=== PATIENT | male | born 2000 | race Caucasian/White ===

== ENCOUNTER 2018-05-01 13:58 | Emergency (ER) | payer MEDICAID ==
[~2018-05-01] VITALS: Ht 180.3 cm; Wt 59.8 kg
[~2018-05-01 13:58] MED LIST: HALO2TAB IM; HALO2TAB PO; LAMO100T2 PO; LORA2TAB96 PO; LORA2VIA30 IM
[2018-05-01 14:08] VITALS: BP 141/85
[2018-05-01] MEDS ORDERED: PENI-88 PO (14:22)
[2018-05-01] MEDS ORDERED: ACET-3067 PO (14:22)
[2018-05-01] MEDS ORDERED: acetaminophen w/codeine (30MG) #3 tablet PO ONE (14:25)
== END 2018-05-01 14:33 | disposition home or self-care (01) ==
LOC: ER 13:58
DX: K02.9 Dental caries, unspecified (principal); F12.10 Cannabis abuse, uncomplicated; F17.200 Nicotine dependence, unspecified, uncomplicated; F41.9 Anxiety disorder, unspecified; F32.9 Major depressive disorder, single episode, unspecified
CPT/HCPCS: 99283

== ENCOUNTER 2018-07-07 14:56 | Emergency (ER) | payer MEDICAID ==
[~2018-07-07] VITALS: Ht 180.3 cm; Wt 61.4 kg
[2018-07-07 15:12] VITALS: BP 121/82
== END 2018-07-07 15:52 | disposition home or self-care (01) ==
LOC: ER 14:56
DX: K08.89 Other specified disorders of teeth and supporting structures (principal); R22.0 Localized swelling, mass and lump, head; F12.90 Cannabis use, unspecified, uncomplicated; Z98.818 Other dental procedure status
CPT/HCPCS: 99281

== ENCOUNTER 2018-12-08 23:32 | Emergency (ER) | payer MEDICAID ==
[~2018-12-08] VITALS: Ht 182.9 cm; Wt 63.6 kg
[2018-12-08 23:37] VITALS: BP 129/90
--- NOTE | 2018-12-08 23:52 | NUR ---
EFFIE STINSON ASKED IF SHE COULD ORDER AN ANKLE FILM/STATED THAT WOULD BE FINE.
[2018-12-09] MEDS ORDERED: ketorolac trometh. 30mg/ml inj. IM ONE (04:05)
== END 2018-12-09 04:19 | disposition home or self-care (01) ==
LOC: ER 23:33
DX: S93.601A Unspecified sprain of right foot, initial encounter (principal); F12.90 Cannabis use, unspecified, uncomplicated; Z79.899 Other long term (current) drug therapy; X58.XXXA Exposure to other specified factors, initial encounter; Y93.89 Activity, other specified; Y92.89 Other specified places as the place of occurrence of the external cause; Y99.8 Other external cause status
CPT/HCPCS: 29515; 73610; 73630; 96372; 99283; J1885

== ENCOUNTER 2019-04-24 12:28 | Emergency (ER) | payer MEDICAID ==
[~2019-04-24] VITALS: Ht 182.9 cm; Wt 63.6 kg
[2019-04-24 12:37] VITALS: BP 124/70
[2019-04-24] MEDS ORDERED: AMOX500C2 PO (13:08)
[2019-04-24] MEDS ORDERED: acetaminophen 325mg tablet PO ONE (13:10)
[2019-04-24] MEDS ORDERED: ketorolac trometh inj. 60 MG/2 ML VIAL IM ONE (13:10)
[2019-04-24] MEDS ORDERED: ketorolac trometh. 30mg/ml inj. IM ONE (13:10)
== END 2019-04-24 13:43 | disposition home or self-care (01) ==
LOC: ER 12:28
DX: K02.9 Dental caries, unspecified (principal); F41.9 Anxiety disorder, unspecified; F32.9 Major depressive disorder, single episode, unspecified; F12.90 Cannabis use, unspecified, uncomplicated; Z98.890 Other specified postprocedural states
CPT/HCPCS: 96372; 99283; J1885

== ENCOUNTER 2019-05-17 19:14 | Emergency (ER) | payer MEDICAID, OTHER ==
[~2019-05-17] VITALS: Ht 182.9 cm; Wt 63.6 kg
[~2019-05-17 19:14] MED LIST changes: +AMOX500C2 PO
[2019-05-17 19:19] VITALS: BP 110/59
--- NOTE | 2019-05-17 20:45 | NUR ---
Rounding on patient, pt left without telling anyone. Will wait to see if he returns.
--- NOTE | 2019-05-17 21:00 | NUR ---
Pt has not returned to room.
== END 2019-05-17 21:20 | disposition left against medical advice (07) ==
LOC: ER 19:15
DX: K08.89 Other specified disorders of teeth and supporting structures (principal); Z53.21 Procedure and treatment not carried out due to patient leaving prior to being seen by health care provider

== ENCOUNTER 2023-11-27 17:58 | Inpatient (IN) | payer MEDICAID ==
[~2023-11-27] VITALS: Ht 180.3 cm; Wt 52.7 kg
[~2023-11-27 17:58] MED LIST changes: -AMOX500C2 PO
[2023-11-27 21:24] VITALS: BP 133/82; PULSE 67; RESP 16; TEMP 99.7; O2SAT 99
[2023-11-27] MEDS ORDERED: acetaminophen 325mg tablet PO PRN (21:40)
[2023-11-27] MEDS ORDERED: magnesium hydroxide 30ml (MOM) UD suspension PO PRN (21:40)
[2023-11-27] MEDS ORDERED: loperamide 2mg capsule PO PRN (21:40)
[2023-11-27 22:40] VITALS: RESP 16; O2SAT 99
[2023-11-27] MEDS: NICOTINE POLACRILEX 2 MG LOZENGE BC PRN (22:51)
[2023-11-27] MEDS: folic acid 1mg tablet PO ONE (23:15)
[2023-11-27] MEDS: thiamine 100mg tablet PO ONE (23:16)
[2023-11-27] MEDS ORDERED: NO HOME MEDS (23:34)
[2023-11-28] MEDS: acetaminophen 325mg tablet PO PRN (07:00)
[2023-11-28] MEDS: thiamine 100mg tablet PO SCH (07:00)
[2023-11-28] MEDS: folic acid 1mg tablet PO SCH (07:01)
[2023-11-28] MEDS: nicotine 21mg patch - 24 hr TD SCH (07:01)
[2023-11-28 07:27] VITALS: RESP 16; O2SAT 99
[2023-11-28 08:00] VITALS: BP 112/78; PULSE 72; RESP 14; TEMP 97.8; O2SAT 100
[2023-11-28] MEDS: lactose-reduced food (Ensure Enlive) - 237ml bottle PO SCH (13:00)
[2023-11-28 13:43] LABS: BASOPHILS % (AUTO) 0.3 % (0-1); EOSINOPHILS % (AUTO) 0.4 % (0-6); HEMATOCRIT 44.8 % (42.0-52.0); LYMPHOCYTES # (AUTO) 0.7 X10'3 (1.1-4.8); LYMPHOCYTES % (AUTO) 14.3 % (21-51); MEAN CORPUSCULAR HEMOGLOBIN 34.1 PG (27.0-31.0); MEAN CORPUSCULAR HGB CONC 33.4 g/dL (33.0-36.5); MEAN PLATELET VOLUME 8.4 FL (7.4-10.4); MONOCYTES # (AUTO) 0.5 X10'3 (0-0.9); MONOCYTES % (AUTO) 9.3 % (2-12); NEUTROPHILS # (AUTO) 3.9 X10'3 (1.8-7.7); NEUTROPHILS % (AUTO) 75.7 % (42-75); PLATELET COUNT 177 X10'3 (140-440); RED CELL DISTRIBUTION WIDTH 13.6 % (11.5-14.5); WHITE BLOOD COUNT 5.1 X10'3 (4.5-11.0)
[2023-11-28 13:48] LABS: ALANINE AMINOTRANSFERASE 665 U/L (12-78); ALBUMIN 3.9 G/DL (3.4-5.0); ALBUMIN/GLOBULIN RATIO 1.1 (1.1-1.5); ALKALINE PHOSPHATASE 127 IU/L (46-116); ANION GAP 12 (8-16); ASPARTATE AMINO TRANSFERASE 699 U/L (10-37); BILIRUBIN,TOTAL 1.3 MG/DL (0.1-1.0); BLOOD UREA NITROGEN 9 MG/DL (7-18); BUN/CREATININE RATIO 14.1 (10.0-20.0); CALCIUM 9.6 MG/DL (8.5-10.1); CHLORIDE 97 MMOL/L (99-107); CREATININE 0.64 MG/DL (0.60-1.10); GLUCOSE 152 MG/DL (70-104); HEMOGLOBIN A1C 4.8 % (4.5-6.2); SODIUM 134 MMOL/L (135-145); TOTAL CARBON DIOXIDE 25.3 MMOL/L (24-32); TOTAL PROTEIN 7.6 G/DL (6.4-8.2); eCRCL 132 ML/MIN; eGFR > 90 ML/MIN
[2023-11-28 13:50] LABS: CHOL/HDL RATIO 1.6 (0.00-4.99); CHOLESTEROL 198 MG/DL (0-200); HDL CHOLESTEROL 125 MG/DL (35-60); LDL CHOLESTEROL 50 MG/DL (50-100); TRIGLYCERIDES 67 MG/DL (20-135)
[2023-11-28 19:00] VITALS: RESP 18; O2SAT 99
[2023-11-28 20:00] VITALS: BP 152/88; PULSE 80; RESP 18; TEMP 99.1; O2SAT 99
[2023-11-28] MEDS: docusate sod 100mg capsule PO SCH (20:06)
[2023-11-28] MEDS ORDERED: LORazepam 1 MG tablet PO PRN (20:40)
[2023-11-28 21:00] VITALS: BP 128/84; PULSE 77; RESP 16; TEMP 99.1; O2SAT 98
[2023-11-28] MEDS: traZODone 50mg tablet PO SCH (21:44)
[2023-11-29 06:55] VITALS: RESP 16; O2SAT 99
[2023-11-29] MEDS: ESCITALOPRAM 10 mg tablet 10 MG TABLET PO SCH (07:10)
[2023-11-29 08:44] VITALS: BP 125/66; PULSE 51; RESP 14; TEMP 98.1; O2SAT 99
[2023-11-29] MEDS: mag hydrox/Alum hydrox/simeth 30ml oral suspension PO PRN (09:28)
[2023-11-29 19:19] VITALS: RESP 18; O2SAT 98
[2023-11-29 19:43] VITALS: BP 128/77; PULSE 91; RESP 18; TEMP 98.5; O2SAT 98
[2023-11-29] MEDS: traZODone 50mg tablet PO ONE (20:45)
[2023-11-29] MEDS: traZODone 50mg tablet PO SCH (20:45)
[2023-11-30 07:00] VITALS: RESP 14; O2SAT 99
[2023-11-30 07:25] LABS: ALANINE AMINOTRANSFERASE 959 U/L (12-78); ALBUMIN 3.6 G/DL (3.4-5.0); ALBUMIN/GLOBULIN RATIO 1.1 (1.1-1.5); ALKALINE PHOSPHATASE 109 IU/L (46-116); ANION GAP 6 (8-16); ASPARTATE AMINO TRANSFERASE 925 U/L (10-37); BILIRUBIN,TOTAL 1.2 MG/DL (0.1-1.0); BLOOD UREA NITROGEN 11 MG/DL (7-18); BUN/CREATININE RATIO 13.6 (10.0-20.0); CALCIUM 8.9 MG/DL (8.5-10.1); CHLORIDE 103 MMOL/L (99-107); CREATININE 0.81 MG/DL (0.60-1.10); GLUCOSE 91 MG/DL (70-104); POTASSIUM 4.7 MMOL/L (3.5-5.1); SODIUM 138 MMOL/L (135-145); TOTAL CARBON DIOXIDE 28.8 MMOL/L (24-32); eCRCL 104 ML/MIN; eGFR > 90 ML/MIN
[2023-11-30] MEDS: naltrexone 50mg tablet PO SCH (08:00)
[2023-11-30 08:30] VITALS: BP 116/68; PULSE 56; RESP 14; TEMP 98; O2SAT 99
[2023-11-30 19:14] LABS: HIV ANTIBODY 1&2 RAPID NON-REACTIVE (Neg)
[2023-11-30 19:51] VITALS: BP 127/88; PULSE 87; RESP 16; TEMP 98.9; O2SAT 97
[2023-12-01 07:00] VITALS: BP 113/70; PULSE 65; RESP 12; TEMP 98.2; O2SAT 98
[2023-12-01 07:46] LABS: ALBUMIN 3.8 G/DL (3.4-5.0); ALBUMIN/GLOBULIN RATIO 1.1 (1.1-1.5); ALKALINE PHOSPHATASE 116 IU/L (46-116); ANION GAP 8 (8-16); BILIRUBIN,TOTAL 0.9 MG/DL (0.1-1.0); BLOOD UREA NITROGEN 12 MG/DL (7-18); BUN/CREATININE RATIO 16.4 (10.0-20.0); CALCIUM 9.3 MG/DL (8.5-10.1); CHLORIDE 104 MMOL/L (99-107); CREATININE 0.73 MG/DL (0.60-1.10); GLUCOSE 90 MG/DL (70-104); POTASSIUM 4.6 MMOL/L (3.5-5.1); SODIUM 139 MMOL/L (135-145); TOTAL CARBON DIOXIDE 26.8 MMOL/L (24-32); TOTAL PROTEIN 7.4 G/DL (6.4-8.2); eCRCL 115 ML/MIN; eGFR > 90 ML/MIN
[2023-12-01 07:57] LABS: ALANINE AMINOTRANSFERASE 1357 U/L (12-78); ASPARTATE AMINO TRANSFERASE 1084 U/L (10-37)
[2023-12-01] MEDS ORDERED: NICO-907 BC (14:44)
[2023-12-01] MEDS ORDERED: NICO-687 TD (14:44)
== END 2023-12-01 17:09 | disposition home or self-care (01) | DRG 751 ==
LOC: ADULT MH 21:24
PROVIDERS: ADMIT Psychiatry & Neurology Psychiatry; ATTEND Psychiatry & Neurology Psychiatry
DX: F33.1 Major depressive disorder, recurrent, moderate (principal); R45.851 Suicidal ideations; R16.0 Hepatomegaly, not elsewhere classified; K76.0 Fatty (change of) liver, not elsewhere classified; F41.9 Anxiety disorder, unspecified; F10.10 Alcohol abuse, uncomplicated; Y90.9 Presence of alcohol in blood, level not specified; R01.1 Cardiac murmur, unspecified; Z91.013 Allergy to seafood; Z91.51 Personal history of suicidal behavior; Z79.899 Other long term (current) drug therapy
CPT/HCPCS: 36415; 74150; 76700; 80053; 80061; 80074; 83036; 85025; 86703; 86803; 87081; 87522; 93306

== ENCOUNTER 2024-03-17 23:49 | Emergency (ER) | payer MEDICAID ==
[~2024-03-17] VITALS: Ht 177.8 cm; Wt 53.6 kg
[~2024-03-17 23:49] MED LIST changes: -HALO2TAB IM; -HALO2TAB PO; -LAMO100T2 PO; -LORA2TAB96 PO; -LORA2VIA30 IM; +NICO-687 TD; +NICO-907 BC; +NO HOME MEDS
[2024-03-18] MEDS ORDERED: DOXY-356 PO (02:33)
[2024-03-18] MEDS: ibuprofen tablet 400 MG TABLET PO ONE (02:40)
[2024-03-18] MEDS: ciprofloxacin 250mg tablet PO ONE (02:41)
[2024-03-18 02:52] LABS: BILIRUBIN,URINE NEGATIVE (Neg); CLARITY,URINE CLEAR (Clear); COLOR,URINE STRAW (Yellow); GLUCOSE, URINE NEGATIVE (Neg); KETONES,URINE NEGATIVE (Neg); LEUKOCYTE ESTERASE ,URINE NEGATIVE (Neg); NITRITES, URINE NEGATIVE (Neg); OCCULT BLOOD,URINE NEGATIVE (Neg); PROTEIN,URINE NEGATIVE (Neg); UA COLLECTION TYPE URINAL; UROBILINOGEN,URINE 0.2 E.U/dL (0.2-1.0)
[2024-03-18 05:21] VITALS: BP 112/71; PULSE 85; RESP 15; TEMP 98.4; O2SAT 97
== END 2024-03-18 05:23 | disposition home or self-care (01) ==
LOC: ER 23:50
DX: N45.1 Epididymitis (principal); F41.9 Anxiety disorder, unspecified; F32.A Depression, unspecified; F12.90 Cannabis use, unspecified, uncomplicated; Z91.013 Allergy to seafood; Z79.899 Other long term (current) drug therapy
CPT/HCPCS: 76870; 81003; 93976; 99284

== ENCOUNTER 2024-08-17 10:18 | Emergency (ER) | payer MEDICAID ==
[~2024-08-17] VITALS: Ht 180.3 cm; Wt 57.0 kg
[2024-08-17 10:30] VITALS: TEMP 98.4
[2024-08-17 10:56] LABS: BASOPHILS % (AUTO) 0.3 % (0-1); EOSINOPHILS # (AUTO) 0.1 X10'3 (0-0.9); EOSINOPHILS % (AUTO) 1.1 % (0-6); HEMATOCRIT 44.1 % (42.0-52.0); HEMOGLOBIN 15.1 g/dl (14.0-17.9); LYMPHOCYTES # (AUTO) 1.4 X10'3 (1.1-4.8); LYMPHOCYTES % (AUTO) 17.9 % (21-51); MEAN CORPUSCULAR HEMOGLOBIN 33.2 PG (27.0-31.0); MEAN CORPUSCULAR HGB CONC 34.2 g/dL (33.0-36.5); MEAN CORPUSCULAR VOLUME 96.9 FL (78-98); MEAN PLATELET VOLUME 7.9 FL (7.4-10.4); MONOCYTES # (AUTO) 0.6 X10'3 (0-0.9); MONOCYTES % (AUTO) 7.2 % (2-12); NEUTROPHILS # (AUTO) 5.6 X10'3 (1.8-7.7); NEUTROPHILS % (AUTO) 73.5 % (42-75); PLATELET COUNT 254 X10'3 (140-440); RED BLOOD COUNT 4.55 X10'6 (4.70-6.10); RED CELL DISTRIBUTION WIDTH 12.8 % (11.5-14.5); WHITE BLOOD COUNT 7.7 X10'3 (4.5-11.0)
[2024-08-17 11:11] LABS: ALANINE AMINOTRANSFERASE 19 U/L (12-78); ALBUMIN 4.4 G/DL (3.4-5.0); ALBUMIN/GLOBULIN RATIO 1.3 (1.1-1.5); ALKALINE PHOSPHATASE 63 IU/L (46-116); AMYLASE 45 U/L (25-115); ANION GAP 7 (8-16); ASPARTATE AMINO TRANSFERASE 16 U/L (10-37); BILIRUBIN,TOTAL 0.6 MG/DL (0.1-1.0); BLOOD UREA NITROGEN 7 MG/DL (7-18); BUN/CREATININE RATIO 10.1 (10.0-20.0); CALCIUM 9.2 MG/DL (8.5-10.1); CHLORIDE 108 MMOL/L (99-107); CREATININE 0.69 MG/DL (0.60-1.10); GLUCOSE 114 MG/DL (70-104); LIPASE 31 U/L (16-77); POTASSIUM 3.9 MMOL/L (3.5-5.1); SODIUM 143 MMOL/L (135-145); TOTAL CARBON DIOXIDE 27.7 MMOL/L (24-32); TOTAL PROTEIN 7.9 G/DL (6.4-8.2); eCRCL 131 ML/MIN; eGFR > 90 ML/MIN
[2024-08-17 13:57] LABS: BILIRUBIN,URINE NEGATIVE (Neg); CLARITY,URINE CLEAR (Clear); COLOR,URINE YELLOW (Yellow); GLUCOSE, URINE NEGATIVE (Neg); KETONES,URINE TRACE mg/dl (Neg); LEUKOCYTE ESTERASE ,URINE NEGATIVE (Neg); NITRITES, URINE NEGATIVE (Neg); OCCULT BLOOD,URINE NEGATIVE (Neg); PROTEIN,URINE NEGATIVE (Neg); UROBILINOGEN,URINE 0.2 E.U/dL (0.2-1.0)
[2024-08-17 14:07] LABS: UA COLLECTION TYPE CLN CATCH MIDSTREAM
[2024-08-17] MEDS ORDERED: iohexol 300mg/ml 100ml inj. ONE (14:15)
[2024-08-17] MEDS: diphenhydrAMINE 50 mg/ml inj IV ONE (14:28)
[2024-08-17] MEDS: ketorolac trometh 15mg/ml vial 15 MG/ML ML IV ONE (14:29)
[2024-08-17] MEDS: normal saline 1000ML IV soln IVB ONE (14:30)
[2024-08-17 15:44] VITALS: BP 124/79; PULSE 79; RESP 18; O2SAT 99
== END 2024-08-17 16:25 | disposition home or self-care (01) ==
LOC: ER 10:18
DX: N43.3 Hydrocele, unspecified (principal); F41.9 Anxiety disorder, unspecified; F32.A Depression, unspecified; F12.90 Cannabis use, unspecified, uncomplicated; Z79.899 Other long term (current) drug therapy
CPT/HCPCS: 36415; 74177; 76870; 80053; 81003; 82150; 83690; 85025; 93976; 96361; 96374; 96375; 99285; J1200; J1885; J7030; Q9967